=== PATIENT | male | born 1945 | race Caucasian/White ===

== ENCOUNTER → 2017-08-08 | Outpatient (CLI) | payer MEDICARE | LOC: ROC 09:03 | PROVIDERS: ATTEND Radiology Radiation Oncology | DX: D33.3 Benign neoplasm of cranial nerves (principal); Z79.82 Long term (current) use of aspirin | CPT/HCPCS: G0463 ==

== ENCOUNTER → 2019-04-11 | Outpatient (CLI) | payer MEDICARE ==
[~2019-04-11] MED LIST: ASPI-496 PO; ATOR40TA PO; DABI150C PO; DRON400T PO; METH8TAB PO; METO25TA35 PO; METO50TA82 PO; MILK175T2 PO; OMNIPAQUE 350 MG/ML, 150 ML BOTTLE ONE; POTA10TA17 PO; TESTOSTERONE CREAM; TESTOSTERONE GEL; TOPRAMAX PO; [UNRECOGNIZED DRUG - OTHER] PO; [UNRECOGNIZED DRUG - OTHER] PO; [UNRECOGNIZED DRUG - OTHER] PO
== END | disposition home or self-care (01) ==
LOC: CFH 11:13
PROVIDERS: ATTEND Urology
DX: N39.3 Stress incontinence (female) (male) (principal); D18.03 Hemangioma of intra-abdominal structures; M47.896 Other spondylosis, lumbar region; M85.80 Other specified disorders of bone density and structure, unspecified site; I70.0 Atherosclerosis of aorta
CPT/HCPCS: 74178; Q9967

== ENCOUNTER 2019-04-16 11:03 | Day surgery (SDC) | payer MEDICARE ==
[~2019-04-16] VITALS: Ht 170.2 cm; Wt 65.5 kg
[2019-04-16] MEDS ORDERED: LACTATED RINGERS 1,000 ML IV SCH (12:02)
[2019-04-16 12:04] VITALS: BP 130/79
[2019-04-16] MEDS ORDERED: ASPI-496 PO (12:20)
[2019-04-16] MEDS ORDERED: [UNRECOGNIZED DRUG - OTHER] PO (12:20)
[2019-04-16] MEDS ORDERED: ATOR40TA PO (12:20)
[2019-04-16] MEDS ORDERED: METO25TA35 PO (12:20)
[2019-04-16] MEDS ORDERED: [UNRECOGNIZED DRUG - OTHER] PO (12:20)
[2019-04-16] MEDS ORDERED: METO50TA82 PO (12:20)
[2019-04-16] MEDS ORDERED: DABI150C PO (12:20)
[2019-04-16] MEDS ORDERED: TOPRAMAX PO (12:21)
[2019-04-16] MEDS ORDERED: POTA10TA17 PO (12:21)
[2019-04-16] MEDS ORDERED: [UNRECOGNIZED DRUG - OTHER] PO (12:21)
[2019-04-16] MEDS ORDERED: MILK175T2 PO (12:21)
[2019-04-16] MEDS ORDERED: METH8TAB PO (12:30)
[2019-04-16] MEDS ORDERED: DRON400T PO ×2 (12:30→12:32)
[2019-04-16] MEDS ORDERED: TESTOSTERONE GEL (12:30)
[2019-04-16] MEDS ORDERED: TESTOSTERONE CREAM (12:32)
[2019-04-16] MEDS ORDERED: FENTANYL PF 100 MCG/2ML ONE ×2 (13:42→15:37)
[2019-04-16] MEDS ORDERED: HYDROCORTISONE 100 MG INJ. ONE (14:48)
[2019-04-16] MEDS ORDERED: EPHEDRINE 50 MG/ML, 1ML ONE (14:49)
[2019-04-16] MEDS ORDERED: OMNIPAQUE 350 MG/ML, 50 ML BOTTLE ONE (15:00)
[2019-04-16] MEDS ORDERED: OMNIPAQUE 350 MG/ML, 50 ML BOTTLE IV ONE (15:13)
[2019-04-16] MEDS ORDERED: ONDANSETRON 2MG/ML, 2ML ONE (15:27)
[2019-04-16] MEDS ORDERED: CEFAZOLIN 1,000 MG ONE (15:27)
[2019-04-16] MEDS ORDERED: PROPOFOL 10 MG/ML, 20ML ONE (15:27)
[2019-04-16] MEDS ORDERED: DEXAMETHASONE 4 MG/ML, 1ML ONE (15:27)
[2019-04-16] MEDS ORDERED: ONDANSETRON 2MG/ML, 2ML IV PRN (16:30)
[2019-04-16] MEDS ORDERED: hydrALAzine 20 MG/ML, 1ML IV PRN (16:30)
[2019-04-16] MEDS ORDERED: OXYcodone 5 MG/5 ML ORAL.SOL UDC PO PRN (16:30)
[2019-04-16] MEDS ORDERED: HYDROmorphone 2 MG/ML, 1ML IVPush PRN (16:30)
[2019-04-16] MEDS ORDERED: FENTANYL PF 100 MCG/2ML IV PRN (16:30)
[2019-04-16] MEDS ORDERED: LABETALOL 5MG/ML, 20ML IV PRN (16:30)
[2019-04-16] MEDS ORDERED: ONDANSETRON ODT 8 MG PO PRN (16:30)
[2019-04-16] MEDS ORDERED: PROMETHAZINE 25 MG SUPP PR PRN (16:30)
[2019-04-16] MEDS ORDERED: PROMETHAZINE 25 MG/ML, 1ML IV PRN (16:30)
[2019-04-16] MEDS ORDERED: ACETAMINOPHEN 325 MG TABLET PO PRN (16:30)
[2019-04-16] MEDS ORDERED: METOPROLOL TARTRATE 50 MG TABLET PO SCH (21:00)
[2019-04-16] MEDS ORDERED: ATORVASTATIN 40 MG TABLET PO SCH (21:00)
[2019-04-16] MEDS ORDERED: DRONEDARONE 400MG TABLET PO SCH ×3 (21:00)
[2019-04-17] MEDS ORDERED: METOPROLOL TARTRATE 25 MG TABLET PO SCH (09:00)
== END 2019-04-16 17:45 | disposition home or self-care (01) ==
LOC: OUT 11:03
PROVIDERS: ATTEND Urology
DX: N30.80 Other cystitis without hematuria (principal); N32.0 Bladder-neck obstruction; I10 Essential (primary) hypertension; I25.2 Old myocardial infarction; I25.10 Atherosclerotic heart disease of native coronary artery without angina pectoris; E78.00 Pure hypercholesterolemia, unspecified; Z79.82 Long term (current) use of aspirin; Z79.899 Other long term (current) drug therapy; Z85.46 Personal history of malignant neoplasm of prostate; Z90.79 Acquired absence of other genital organ(s)
CPT/HCPCS: 52005; 52204; 74420; 88112; 88305; 93005; C1758; C1769; J0690; J1720; J2405; J2704; J3010; Q9967; J1100

== ENCOUNTER 2019-07-31 08:05 | Outpatient (CLI) | payer MEDICARE ==
[~2019-07-31 08:05] MED LIST changes: -OMNIPAQUE 350 MG/ML, 150 ML BOTTLE ONE
== END 2019-07-31 23:59 | disposition home or self-care (01) ==
LOC: ROC 08:05
PROVIDERS: ATTEND Radiology Radiation Oncology
DX: D33.3 Benign neoplasm of cranial nerves (principal)
CPT/HCPCS: G0463